=== PATIENT | female | born 2000 | race Hispanic/Latino ===

== ENCOUNTER 2020-06-06 15:39 | Observation (INO) | payer OTHER, SELFPAY ==
--- NOTE | ~2020-06-06 | CT_ITS ---
EXAMINATION: CT abdomen pelvis w con INDICATION: Abdominal pain TECHNIQUE: Computed tomographic images of the abdomen and pelvis were obtained after the administrati on of 100 cc of Omnipaque 350 intravenous contrast. The dose-length product (DLP) was 229.68 mGy-cm. Automated exposure control and iterative reconstruction technique were employed. COMPARISON: 07/05/2019 FINDINGS: The lung bases are clear. The heart size is normal. There are multiple small cysts of the l iver which measure up to 4 mm in the right hepatic lobe. The spleen, pancreas, gallbladder, and adren al glands are normal. The kidneys are unremarkable. No pathologically enlarged abdominal or pelvic ly mph nodes are identified. There is no free intraperitoneal gas or evidence of bowel obstruction. A la rge volume of colonic stool is present. The mildly dilated appendix measures 7 mm. There is subtle e dematous stranding of the periappendiceal fat. IMPRESSION: 1. Possible very early appendicitis. Recommend clinical correlation for right lower quadrant tenderne ss. 2. Constipation. Reviewed, dictated and finalized at location A. [employer] IMPRESSION: 1. Possible very early appendicitis. Recommend clinical correlation for right l ower quadrant tenderness. 2. Constipation.
[2020-06-06 16:10] VITALS: BP 121/69; PULSE 80; RESP 17; TEMP 36.6; O2SAT 100
--- NOTE | 2020-06-06 16:30 | ED.GENADULT ---
HPI - General Adult General Chief complaint: Abdominal Pain Stated complaint: ABDOMINAL PAIN Time Seen by Provider: 06/06/20 16:15 Source: RN notes reviewed History of Present Illness HPI narrative: Patient presents emergency department from home for abdominal pain. Patient states symptoms began around noon today. Pain is located in the bilateral lower lower angely wall but worse on the right states is associated with nausea as well as several formed stools she denies any fevers or chills chest pain shortness of breath diarrhea or any other symptoms took no previous pain medication at home Related Data Home Medications Medication Instructions Recorded Confirmed Control Pills 07/05/19 Allergies Allergy/AdvReac Type Severity Reaction Status Date / Time human papillomavirus Allergy Headache Verified 06/06/20 16:13 vaccine, bival Review of Systems Review of Systems: Narrative: Gen.: Denies fevers or chills ENT: Denies congestion Respiratory: Denies shortness of breath or cough CV: Denies chest pain or palpitations GI: see HPI denies burning, urgency, frequency or hematuria Musculoskeletal: Denies back pain or muscle pain Neuro: Denies numbness, tingling, weakness or focal weakness Skin: Denies rash Except as documented, all other systems reviewed and negative PMFSH Past Medical History Medical History Healthy adult Surgical History Surgical History (Updated 07/05/19 @ 14:20 by Virginia Robin) No pertinent past surgical history Social History Social History Smoking status: Never smoker Gender identity (if verbalized by the patient): Female Exam Narrative: Exam Narrative: APPEARANCE: No acute distress, nontoxic, resting in bed HEENT: Normocephalic, atraumatic, OMM RESPIRATORY: No respiratory distress, clear to auscultation bilaterally with no rhonchi wheezing or rales CARDIOVASCULAR: RRR s murmur ABDOMINAL: Soft, nondistended, tender palpation in right upper quadrant and left upper quadrant with increased tenderness in right lower quadrant no rebound or guarding MUSCULOSKELETAl: Moves all extremities. No clubbing, cyanosis or edema. NEURO: Awake and alert. Following commands, speech normal, no focal deficits SKIN:: Warm, dry. Normal Color PSYCHIATRIC: Normal affect/mood Course Course Emergency Course: Discussed with Dr. george presentation work-up agrees with admission to service with plan for OR in the a.m. Discussed with patient and family results of workup and diagnosis. Discussed need for admission. Patient and family understand and agree to current treatment plan Vital Signs Vital signs: Vital Signs Temperature 97.9 F 06/06/20 16:10 Pulse Rate 80 06/06/20 16:10 Respiratory Rate 17 06/06/20 16:10 Blood Pressure 121/69 06/06/20 16:10 Pulse Oximetry 100 06/06/20 16:10 Temperature 97.9 F 06/06/20 16:10 Pulse Rate 80 06/06/20 16:10 Respiratory Rate 17 06/06/20 16:10 Blood Pressure 121/69 06/06/20 16:10 Pulse Oximetry 100 06/06/20 16:10 Medical Decision Making Vital Signs Vital Signs: Vital Signs Temperature 97.9 F 06/06/20 16:10 Pulse Rate 80 06/06/20 16:10 Respiratory Rate 17 06/06/20 16:10 Blood Pressure 121/69 06/06/20 16:10 Pulse Oximetry 100 06/06/20 16:10 Temperature 97.9 F 06/06/20 16:10 Pulse Rate 80 06/06/20 16:10 Respiratory Rate 17 06/06/20 16:10 Blood Pressure 121/69 06/06/20 16:10 Pulse Oximetry 100 06/06/20 16:10 Lab Data Result diagrams: 06/06/20 16:31 06/06/20 16:31 Labs: Lab Results 06/06/20 06/06/20 06/06/20 Range/Units 16:31 16:31 16:31 WBC 11.5 H (4.5-10.0) K/mm3 RBC 4.50 (4.2-5.4) M/mm3 Hgb 12.9 (12.0-15.0) g/dL Hct 38.8 (37.0-47.0) % MCV 86.2 (80-100) fl MCH 28.7 (26-34) pg MCHC 33.2 (32-
[2020-06-06] MEDS: SODIUM CHLORIDE 0.9% IV 1,000 ML 999 ML IV CONT (16:35)
[2020-06-06] MEDS: ONDANSETRON INJ 4 MG/2 ML VIAL IV PUSH ×2 (16:35→19:28)
[2020-06-06 16:42] LABS: Basophils Percent Auto 0.2 % (0.2-1.2); Eosinophils Absolute Auto 0.1 K/mm3 (0-0.3); Eosinophils Percent Auto 0.9 % (0-4.4); Hematocrit 38.8 % (37.0-47.0); Hemoglobin 12.9 g/dL (12.0-15.0); Immature Granulocyte Absolute 0.05 K/mm3 (0.00-0.031); Immature Granulocyte Percent A 0.4 % (0-0.5); Lymphocytes Percent Auto 16.5 % (18.3-44.2); Mean Corpuscular HGB Conc 33.2 g/dl (32-36); Mean Corpuscular Hemoglobin 28.7 pg (26-34); Mean Corpuscular Volume 86.2 fl (80-100); Mean Platelet Volume 8.8 fl (7.4-10.4); Monocytes Absolute Auto 0.6 K/mm3 (0.1-0.6); Neutrophils Absolute Auto 8.9 K/mm3 (1.3-6.7); Platelet Count Result 387 k/mm3 (150-375); Red Cell Distribution Width 12.8 % (11.5-14.5); White Blood Count 11.5 K/mm3 (4.5-10.0)
[2020-06-06 16:46] LABS: Add Urine Microscopic? YES; Appearance Urine Clear (Clear); Bacteria Urine Trace /hpf; Bilirubin Urine Negative (Negative); Blood Urine Negative (Negative); Color Urine Yellow (Yellow); Glucose Urine UA Negative (Negative); Ketones Urine Negative (Negative); Leukocyte Esterase Ur Negative LEU/UL (Negative); Mucus Urine Rare /lpf; Nitrate Urine Negative (Negative); Protein Urine Negative (Negative); RBC Urine 0-2 /hpf (0-2); Specific Grav Ur 1.015 (1.001-1.035); Squamous Epithelial Cell Urine Occasional /hpf (Few); Urobilinogen Urine Negative mg/dL (<2.0); WBC Urine 0-3 /hpf
[2020-06-06 16:57] LABS: Alanine Aminotransferase 13 U/L (4-35); Albumin Level 4.4 g/dL (3.5-5.1); Alkaline Phosphatase 85 U/L (38-126); Anion Gap 7 mmol/L (8-16); Aspartate Amino Transferase 28 U/L (14-36); Bilirubin,Total 0.5 mg/dL (0.2-1.3); Blood Urea Nitrogen 10 mg/dL (7-17); Calcium 9.8 mg/dL (8.4-10.2); Carbon Dioxide 28 mmol/L (22-30); Chloride 103 mmol/L (98-107); Estimated CRCL calculation 95 ml/min; Estimated Glomerular Filt Rate > 60; Glucose 92 mg/dL (65-105); Lipase 52 U/L (23-300); Potassium 3.9 mmol/L (3.4-5.0); Sodium 138 mmol/L (137-145)
[2020-06-06 19:14] VITALS: BP 94/60; PULSE 68; RESP 16; TEMP 36.7; O2SAT 100
[2020-06-06] MEDS: SODIUM CHLORIDE 0.9% IV 1,000 ML 125 ML IV CONT (21:14)
[2020-06-06 22:00] VITALS: BP 102/61; PULSE 65; RESP 16; TEMP 36.3; O2SAT 100
[2020-06-06 22:38] VITALS: BMI 23.7
[2020-06-07] VITALS (9 sets, daily range): BP systolic 92–116; BP diastolic 51–64; PULSE 63–85; RESP 14–20; TEMP 36–36.6; O2SAT 95–100
[2020-06-07] MEDS: ONDANSETRON INJ 4 MG/2 ML VIAL IV PUSH
--- NOTE | 2020-06-07 03:06 | ADMGEN ---
This patient, Mayela Rivera, was admitted to Medical Room [facility]- at 1930. Patient/family oriented to hospital policies and general routines including ID bracelet, bed and alarms, visiting hours, pain management, procedures, bathroom and other care routines, personal items, smoking policy, room service/diet, and visiting hours. Information on how to activate the Rapid Response Team has been discussed. Patient/Family are encouraged to report perceived risks to care and to ask questions if they do not understand what they are told or what they should do.
[2020-06-07] MEDS: SODIUM CHLORIDE 0.9% IV 1,000 ML 125 ML IV CONT (05:43)
[2020-06-07 06:24] LABS: Basophils Percent Auto 0.3 % (0.2-1.2); Eosinophils Absolute Auto 0.2 K/mm3 (0-0.3); Eosinophils Percent Auto 3.2 % (0-4.4); Hemoglobin 10.1 g/dL (12.0-15.0); Immature Granulocyte Absolute 0.02 K/mm3 (0.00-0.031); Immature Granulocyte Percent A 0.3 % (0-0.5); Lymphocytes Absolute Auto 2.72 K/mm3 (0.9-3.2); Mean Corpuscular HGB Conc 33.7 g/dl (32-36); Mean Corpuscular Hemoglobin 28.5 pg (26-34); Mean Corpuscular Volume 84.5 fl (80-100); Monocytes Absolute Auto 0.5 K/mm3 (0.1-0.6); Monocytes Percent Auto 7.2 % (2.6-8.5); Neutrophils Absolute Auto 3.2 K/mm3 (1.3-6.7); Platelet Count Result 302 k/mm3 (150-375); Red Blood Count 3.55 M/mm3 (4.2-5.4); Red Cell Distribution Width 12.7 % (11.5-14.5); White Blood Count 6.6 K/mm3 (4.5-10.0)
[2020-06-07 06:33] LABS: Anion Gap 7 mmol/L (8-16); Blood Urea Nitrogen 9 mg/dL (7-17); Calcium 7.9 mg/dL (8.4-10.2); Carbon Dioxide 22 mmol/L (22-30); Chloride 107 mmol/L (98-107); Estimated CRCL calculation 95 ml/min; Estimated Glomerular Filt Rate > 60; Glucose 79 mg/dL (65-105); Potassium 3.6 mmol/L (3.4-5.0); Sodium 136 mmol/L (137-145)
--- NOTE | 2020-06-07 07:00 | WPDANESEPP ---
Anes - Eval Pre Procedure Procedure: Operation Date: 06/07/20 08:15 Proposed Procedures p Laparoscopic Appendectomy - Rosendo Soto DO Date/Time: 06/07/20 07:00 Pre Op Diagnosis: Acute appendicitis Patient Data Age: 20 Gender: F Height: 1.55 m Weight: 57 kg Last Vital Signs Temp 36.0 C L 06/07/20 06:00 Pulse 63 06/07/20 06:00 Resp 16 06/07/20 06:00 BP 92/63 L 06/07/20 06:00 Pulse Ox 100 06/07/20 06:00 Allergies Allergy/AdvReac Type Severity Reaction Status Date / Time human papillomavirus Allergy Headache Verified 06/06/20 16:13 vaccine, bival Home Medications Medication Instructions Recorded Confirmed Type Control Pills 1 caplet BYMOUTH USEASDIRECTD 07/05/19 06/06/20 History Laboratory Tests 06/06/20 06/06/20 06/06/20 16:31 16:31 16:31 WBC 11.5 K/mm3 H K/mm3 (4.5-10.0) RBC 4.50 M/mm3 M/mm3 (4.2-5.4) Hgb 12.9 g/dL g/dL (12.0-15.0) Hct 38.8 % % (37.0-47.0) MCV 86.2 fl fl (80-100) MCH 28.7 pg pg (26-34) MCHC 33.2 g/dl g/dl (32-36) RDW 12.8 % % (11.5-14.5) Plt Count 387 k/mm3 H k/mm3 (150-375) MPV 8.8 fl fl (7.4-10.4) Immature Gran % (Auto) 0.4 % % (0-0.5) Neut % (Auto) 77.0 % H % (45.5-73.1) Lymph % (Auto) 16.5 % L % (18.3-44.2) Traverse % (Auto) 5.0 % % (2.6-8.5) Eos % (Auto) 0.9 % % (0-4.4) Baso % (Auto) 0.2 % % (0.2-1.2) Lymph # (Auto) 1.90 K/mm3 K/mm3 (0.9-3.2) Traverse # (Auto) 0.6 K/mm3 K/mm3 (0.1-0.6) Eos # (Auto) 0.1 K/mm3 K/mm3 (0-0.3) Baso # (Auto) 0.0 K/mm3 K/mm3 (0.0-0.1) Abs Immat Gran (auto) 0.05 K/mm3 H K/mm3 (0.00-0.031) Absolute Neuts (auto) 8.9 K/mm3 H K/mm3 (1.3-6.7) Absolute Nucleated RBC 0.0 K/mm3 K/mm3 (0.0-0.012) Nucleated RBC % 0.0 % % (0.0-0.2) Sodium 138 mmol/L mmol/L (137-145) Potassium 3.9 mmol/L mmol/L (3.4-5.0) Chloride 103 mmol/L mmol/L (98-107) Carbon Dioxide 28 mmol/L mmol/L (22-30) Anion Gap 7 mmol/L L mmol/L (8-16) BUN 10 mg/dL mg/dL (7-17) Creatinine 0.60 mg/dL L mg/dL (0.7-1.0) Estim Creat Clear Calc 95 ml/min ml/min Estimated GFR > 60 (59 - ) Glucose 92 mg/dL mg/dL (65-105) Calcium 9.8 mg/dL mg/dL (8.4-10.2) Total Bilirubin 0.5 mg/dL mg/dL (0.2-1.3) AST 28 U/L U/L (14-36) ALT 13 U/L U/L (4-35) Alkaline Phosphatase 85 U/L U/L (38-126) Total Protein 8.0 g/dL g/dL (6.3-8.2) Albumin 4.4 g/dL g/dL (3.5-5.1) Lipase 52 U/L U/L (23-300) Urine Color Yellow (Yellow) Urine Appearance Clear (Clear) Urine pH 7.0 (5.0-9.0) Ur Specific [place] 1.015 (1.001-1.035) Urine Protein Negative mg/dL mg/dL (Negative) Urine Glucose (UA) Negative mg/dL mg/dL (Negative) Urine Ketones Negative mg/dL mg/dL (Negative) Ur Blood (Man) Negative (Negative) Urine Nitrate Negative (Negative) Urine Bilirubin Negative (Negative) Urine Urobilinogen Negative mg/dL mg/dL (<2.0) Leukocyte Esterase Rfl Negative AINSLEY/UL AINSLEY/UL (Negative) Urine RBC 0-2 /hpf /hpf (0-2) Urine WBC 0-3 /hpf /hpf Ur Squamous Epith Cells Occasional /hpf /hpf (Few) Urine Bacteria Trace /hpf /hpf Urine Mucus Rare /lpf /lpf 06/07/20 06/07/20 05:38 05:38 WBC 6.6 K/mm3 K/mm3 (4.5-10.0) RBC 3.55 M/mm3 L M/mm3 (4.2-5.4) Hgb 10.1 g/dL L g/dL (12.0-15.0) Hct 30.0 % L % (37.0-47.0) MCV 84.5 fl fl (80-100) MCH 28.5 pg pg (26-34) MCHC 33.7 g/dl g/dl (3
--- NOTE | 2020-06-07 08:11 | PM.IMHP ---
H&P: HPI History of Present Illness Date/Time: 06/07/20 08:11 Chief complaint: Acute appendicitis Narrative: Mayela Rivera is a 20 year old female Who presented to the emergency department last night with complaints of right lower quadrant abdominal pain. Her pain started yesterday morning. It has localized to the right lower quadrant. Initially she thought these might be menstrual cramps, but she is not due to start her period for another week. She has never experienced pain like this in the past. She does have some nausea, but no change in bowel habits. Review of Systems Review of Systems: All systems reviewed & are unremarkable except as noted in HPI and below Eyes: Eyes: Denies change in vision ENT: Denies hearing loss, Denies neck pain and Denies sore throat Cardiovascular: Cardiovascular: Denies chest pain and Denies dyspnea Respiratory: Respiratory: Denies cough, Denies dyspnea and Denies wheezing Gastrointestinal: Gastrointestinal: Reports as per HPI Genitourinary: Genitourinary: Denies hematuria and Denies dysuria Musculoskeletal: Musculoskeletal: Denies arthralgias, Denies joint swelling and Denies neck pain Allergic/Immunologic: Allergic/Immunologic: Denies wheezing PMFSH Past Medical History Medical History Healthy adult Surgical History Surgical History No pertinent past surgical history Family History Family History Other Unknown family medical history Social History Social History Smoking status: Never smoker Alcohol intake: never Substance use: never Gender identity (if verbalized by the patient): Female Spiritual care concerns: Yes Meds Home Medications and Allergies Home Medications Medication Instructions Recorded Confirmed Type Control Pills 1 caplet BYMOUTH USEASDIRECTD 07/05/19 06/06/20 History Allergies Allergy/AdvReac Type Severity Reaction Status Date / Time human papillomavirus Allergy Headache Verified 06/06/20 16:13 vaccine, bival Vital Signs Vital Signs - 24 hr 06/06/20 16:10 06/06/20 19:14 06/06/20 22:00 Temperature 36.6 C 36.7 C 36.3 C L Pulse Rate 80 68 65 Respiratory Rate 17 16 16 Blood Pressure 121/69 94/60 L 102/61 Pulse Oximetry 100 100 100 06/07/20 06:00 Temperature 36.0 C L Pulse Rate 63 Respiratory Rate 16 Blood Pressure 92/63 L Pulse Oximetry 100 Exam Const: General: alert; No acute distress Orientation/consciousness: patient oriented x3 Limitations: no limitations HENMT: Head: normocephalic and atraumatic Ears: hearing grossly normal bilaterally General nose exam: Normal external nose present and Normal nares present Mouth: Yes Normal oral and palatal mucosa present and Yes moist mucous membranes Eyes: General: appearance normal, both eyes and all related structures Conjunctivae: conjunctivae normal Sclera: sclerae normal Pupils: Equal, round and reactive pupils present EOM: EOMs intact bilaterally Neck: Neck: normal visual inspection, full ROM, no lymphadenopathy, supple and no JVD Lymphatic: no lymphadenopathy noted Chest: Chest palpation & inspection: normal inspection of the chest Resp: Effort & Inspection: normal respiratory effort and able to speak in complete sentences Auscultation: clear to auscultation bilaterally Percussion: percussion normal Cardio: Jugular venous distension: no JVD Rate: regular rate Rhythm: regular rhythm Heart sounds: S1 normal heart sound present and S2 normal heart sound present Peripheral pulses: Peripheral pulses 2+ throughout GI: Inspection: normal to inspection GI Palp: Yes Soft to palpation, Yes Tenderness to palpation present (GI) ( Right lower quadrant), No Guarding due to palpation present (GI), No Hernia present and No Reboun
--- NOTE | 2020-06-07 08:14 | WPDHPUPDATE1 ---
History and Physical Update Update Date/Time: 06/07/20 08:14 History and Physical has been reviewed, including an updated exam of the patient. There are NO changes in the patient's condition. Risks, benefits, and alternatives have been discussed and questions answered. Patient agrees to proceed with procedure.
[2020-06-07] MEDS: BUPIVACAINE/EPINEPHRINE 0.25% 10 ML VIAL 30 ML INFILTRATE (09:52)
--- NOTE | 2020-06-07 10:14 | PM.PROC ---
Procedure Note - Detailed Date of procedure: 06/07/20 Pre-op diagnosis: Acute appendicitis Post-op diagnosis: same Procedure performed: Laparoscopic Appendectomy Description of procedure: Procedure as well as risks, benefits, and alternatives were explained to the patient. The patient agreed to proceed. Written consent was obtained and placed in chart prior to procedure. The patient was brought back to surgical suite. she was placed supine on operating table. Time-out was done to confirm the patient and procedure. The patient was then intubated by the Anesthesia Department. her abdomen was prepped and draped in sterile fashion using chlorhexidine prep. A 12 mm incision was made at the inferior portion of the umbilicus. Blunt dissection was carried out down to the linea alba. The linea alba was then incised using a 15 blade scalpel. Then bluntly entered into the peritoneal cavity. A 12 mm trocar was then inserted, and carbon dioxide insufflation was used to create a pneumoperitoneum. The camera was inserted and the abdomen was inspected. No immediate abnormalities were identified. The patient was then placed in slight Trendelenburg position and rotated to the left. A 5 mm incision was made in the suprapubic region in midline and a 5 mm trocar was inserted under direct visualization. A 5 mm incision was made in the left lower quadrant and a 5 mm trocar was inserted under direct visualization. The right lower quadrant was carefully inspected. The cecum was identified and then this was traced back to the appendix. The appendix was identified and grasped at the mesoappendix and lifted anteriorly. Careful blunt dissection was carried out at the base of the appendix through the mesoappendix using a [place] grasper. An Endo-BERNABE 45 mm blue load stapler was then advanced across the base of the appendix and clamped and fired. A white reload was then clamped across the mesoappendix and fired. This freed up our appendix completely. It was then placed in an EndoCatch bag and removed through the left lower quadrant port. The staple lines were then inspected. Hemostasis appeared adequate and the staple lines appeared secure. The area was then irrigated with sterile saline. The pelvis was then carefully inspected and irrigated with sterile saline as well and the remainder of the abdomen was carefully inspected. The patient was then flattened out in bed. One final inspection was made around the abdominal cavity and no other abnormalities were seen. The ports were then removed under direct visualization. The camera was removed and the pneumoperitoneum was released. The fascia of the umbilical incision was reapproximated using an 0 Vicryl [id number] suture. 0.5% bupivacaine with epinephrine was infiltrated locally around each of the incisions. The skin of the incisions was then approximated using 4-0 Monocryl subcuticular suture and Exofin glue was applied on top. The patient was then awakened from anesthesia, extubated, and transferred to Recovery. Anesthesia: GETA and local (0.5% bupivicaine with epi) Surgeon: Rosendo Soto DO Estimated blood loss (mL): 5 Pathology: yes (Appendix) Complications: No immediate complications Condition: stable Disposition: floor Findings: this is a 20-year-old woman who presented to the emergency department last night with complaints of right lower quadrant abdominal pain. She had focal tenderness to palpation in the right lower quadrant and CT of her abdomen and pelvis showed evidence of early acute appendicitis. She was admitted to the hospital and started on Zosyn IV. Discussions were made with the patient about treatment options and decision was made to proceed with laparoscopic appendectomy, possible open. Laparoscopic appendectomy was performed. The appendix appeared to have early signs of inflammation with slight dilation and erythema, there is no evidence of perforation or abscess. The base of the zechariah
[2020-06-07] MEDS: LACTATED RINGERS 1,000 ML 30 ML IV CONT (10:16)
[2020-06-07] MEDS: fentaNYL CITRATE INJ (*CRX) 100 MCG/2 ML VIAL 25 MCG IV PUSH ×4 (10:34→10:56)
[2020-06-07] MEDS: HYDROcodone/acetaminophen (*CRX) 7.5-325 MG TABLET 1 TAB PO (11:38)
--- NOTE | 2020-06-12 12:53 | PM.DS ---
DS: Admitting Diagnosis Admitting Diagnosis Admitting Diagnosis: acute appendicitis DS: Discharge Diagnosis Discharge Diagnosis (1) Acute appendicitis: Qualifiers: Acute appendicitis type: with localized peritonitis Appendicitis abscess presence: unspecified whether abscess present Appendicitis gangrene presence: unspecified whether gangrene present Appendicitis perforation presence: unspecified whether perforation present Qualified Code(s): K35.30 - Acute appendicitis with localized peritonitis, without perforation or gangrene Code(s): K35.80 - Unspecified acute appendicitis Status: Acute DS: Summary Hospital Course Reason for hospitalization: acute appendicitis Hospital Course: this is a 20-year-old woman who presented to the emergency department on 06/06/2020 with right lower quadrant abdominal pain. Workup and imaging in the emergency department showed evidence of acute appendicitis. She was admitted to the hospital and placed on broad-spectrum IV antibiotics. On 06/07/2020 she underwent laparoscopic appendectomy. Procedure was uncomplicated and she was returned to the surgical floor postoperatively. Her diet and activity were advanced as tolerated. She was doing well several hours after the surgery and was discharged on 06/07/2020. Status at Discharge Functional status at discharge: independent ambulation Overall status at discharge: patient is progressing back to baseline Time Spent with Patient Time attestation: Total time spent providing and/or coordinating discharge services: Time spent: Less than 30 minutes Exam GI: Inspection: incision ( Intact with glue) GI Palp: Yes Soft to palpation DS: Data Data Completed and Pending Completed studies during hospitalization: Pending at discharge 06/07/20 10:04 Surgical [PTH] Routine Imaging Radiologist's impression: ITS Impressions Abdomen/Pelvis CT 06/06/20 17:16 IMPRESSION: 1. Possible very early appendicitis. Recommend clinical correlation for right lower quadrant tenderness. 2. Constipation. Discharge Plan Discharge Attending physician on discharge: Rosendo Salas Consulting providers: Tad Franks Discharging Clinician: Rosendo Salas Patient Disposition: Home, Self-Care Activity: other - see discharge instructions Diet: other - see discharge instructions Wound Care Instructions: other - see discharge instructions Discharge Instructions: DISCHARGE INSTRUCTION SHEET FOR HERNIA, GALLBLADDER AND APPENDIX SURGERIES DR. SALAS PATIENT TO TAKE HOME 1. May shower in 24 hours, no soaking in bath x 2weeks. 2. Call office for: Wound increasingly painful or bleeding Vomiting Fever of greater than 101 degrees 3. If no bowel movement for three days, take 1 oz. (30 ml) Milk of Magnesia or MiraLax 17g 1 to 2 times daily. 4. No heavy lifting > 10-15 pounds x weeks for hernia repairs and 2 weeks for laparoscopic cholecystectomy or appendectomy. 5. No driving for 3 days or while taking narcotic pain medications. 6. Ice to surgical site for 48 hours (30 min on, then 30 min off). 7. Up walking 10-30 minutes three times per day. 8. Resume previous home medications. 9. Follow-up 10-14 days in office for wound check or as previously scheduled. ([id number]) 10. Oral pain medications prescription to be sent to pharmacy. Take Tylenol 500mg every 6 hours and Ibuprofen 600mg every 6 hours for the first 2 days, then as needed. 11. NUTRITION: Start out by drinking fluids and increase your diet as tolerated. If you experience nausea, try dry toast, crackers, and 7-UP. If nausea or vomiting persists, contact your surgeon?s office. 12. Gallbladders-Low Fat Diet for 2 weeks (send care note of low fat diet) 13. Inguinal Hernias-wear scrotal support for 48 hours 14. Abdominal Hernias-if sent home with abdominal binde
== END 2020-06-07 17:59 | disposition home or self-care (01) ==
LOC: ANHED 18:26 → ANH2MED 18:44
PROVIDERS: Admitting Provider Surgery; Emergency Provider Emergency Medicine; PCP Nurse Practitioner Family; Visit Provider Surgery
PROC: 0DTJ4ZZ Resection of Appendix, Percutaneous Endoscopic Approach (ICD-10-PCS; CPT 44970; principal; 2020-06-07 08:15)
DX: K35.30 Acute appendicitis with localized peritonitis, without perforation or gangrene (principal)
CPT/HCPCS: 44970; 36415; 74177; 80048; 80053; 81001; 81025; 83690; 85025; 88304; 96361; 96365; 96366; 96367; 96375; 96376; 99285; A9270; G0378; J0131; J0330; J1100; J2405; J2543; J2704; J3010; J7030; J7120; Q9967

== ENCOUNTER 2020-12-11 15:29 | Emergency (ER) | payer OTHER, SELFPAY ==
--- NOTE | ~2020-12-11 | XR_ITS ---
EXAMINATION: XR chest 2V DATE: 12/11/2020 15:50 INDICATION: Shortness of breath. Painful rash on legs. TECHNIQUE: PA and lateral views of the chest were obtained. COMPARISON: Chest radiograph dated 07/05/2019 FINDINGS: The lungs remain clear with no focal airspace opacities, pulmonary edema, pleural effusion or pneumot horax. The cardiomediastinal silhouette is normal. Mild 3 component curvature of the thoracic and lum bar spine with mild levocurvature at the upper thoracic spine, mild dextrocurvature in the lower thor acic spine and mild levorotocurvature in the lumbar spine. IMPRESSION: 1. No acute cardiopulmonary disease. Reviewed, dictated and finalized at location A.
--- NOTE | 2020-12-11 15:30 | ECG_ITS ---
Measurements Intervals Manley Rate: 105 P: 61 MD: 130 QRS: 47 QRSD: 78 T: 13 QT: 315 QTc: 416 Interpretive Statements SINUS TACHYCARDIA BORDERLINE ST-T WAVE ABNORMALITY- INFERIOR LEADS BASELINE WANDER- V3-V5 ABNORMAL ECG Electronically Signed On 12-11-2020 16:02:59 CDT by Tevin Whittington D.O.
[2020-12-11 15:32] VITALS: BP 146/79; PULSE 108; RESP 27; TEMP 36.6; O2SAT 100
[2020-12-11 15:36] VITALS: PULSE 88
[2020-12-11 15:57] LABS: Basophils Percent Auto 0.3 % (0.2-1.2); Eosinophils Absolute Auto 0.1 K/mm3 (0-0.3); Eosinophils Percent Auto 1.6 % (0-4.4); Hematocrit 34.9 % (37.0-47.0); Hemoglobin 11.5 g/dL (12.0-15.0); Immature Granulocyte Absolute 0.01 K/mm3 (0.00-0.031); Immature Granulocyte Percent A 0.1 % (0-0.5); Lymphocytes Absolute Auto 2.39 K/mm3 (0.9-3.2); Lymphocytes Percent Auto 32.1 % (18.3-44.2); Mean Corpuscular Volume 84.9 fl (80-100); Mean Platelet Volume 8.7 fl (7.4-10.4); Monocytes Absolute Auto 0.6 K/mm3 (0.1-0.6); Monocytes Percent Auto 7.8 % (2.6-8.5); Neutrophils Absolute Auto 4.3 K/mm3 (1.3-6.7); Neutrophils Percent Auto 58.1 % (45.5-73.1); Platelet Count Result 316 k/mm3 (150-375); Red Blood Count 4.11 M/mm3 (4.2-5.4); Red Cell Distribution Width 13.3 % (11.5-14.5); White Blood Count 7.4 K/mm3 (4.5-10.0)
[2020-12-11 16:06] LABS: INR 0.9; Prothrombin Time 12.4 Seconds (11.1-14.7)
[2020-12-11 16:07] LABS: Partial Thromboplastin Time 31.3 SECONDS (22.3-36.8)
[2020-12-11 16:08] LABS: Anion Gap 10 mmol/L (8-16); Blood Urea Nitrogen 7 mg/dL (7-17); Calcium 9.6 mg/dL (8.4-10.2); Carbon Dioxide 24 mmol/L (22-30); Chloride 106 mmol/L (98-107); Estimated CRCL calculation 112 ml/min; Estimated Glomerular Filt Rate > 60; Glucose 96 mg/dL (65-105); Potassium 3.5 mmol/L (3.4-5.0); Sodium 140 mmol/L (137-145)
[2020-12-11 16:20] LABS: Troponin I < 0.012 ng/mL (0.000-0.034)
--- NOTE | 2020-12-11 16:46 | ED.CHESTPAIN ---
HPI - Chest Pain General Chief Complaint: Chest Pain <April Nolasco MD - Last Filed: 12/11/20 17:42> Stated Complaint: chest hurts <April Nolasco MD - Last Filed: 12/11/20 17:42> Time Seen by Provider: 12/11/20 15:41 <April Nolasco MD - Last Filed: 12/11/20 17:42> Source: patient and RN notes reviewed <April Nolasco MD - Last Filed: 12/11/20 17:42> Mode of arrival: ambulatory <April Nolasco MD - Last Filed: 12/11/20 17:42> Limitations: no limitations <April Nolasco MD - Last Filed: 12/11/20 17:42> History of Present Illness HPI narrative: Patient is is 20 years old white female patient presents with dizziness, shortness of breath on exertion, tightness in the chest off and on for the last 24 hours. Patient also complaining of tender rash on the lower extremities for the last 4 days. Patient reports blisterlike rash at the back of the throat 2 weeks ago got better on the steroid and the mouthwash. History of appendectomy May 2020, subsequently patient developed constipation, 1 bowel movement once every 5 days. Patient been vaccinated for COVID-19, second dose was on November 08. Currently patient on control. Patient does not smoke or drink or uses drugs, works. She denies any fever, chills, nausea, vomiting, abdominal pain. Patient denies any genital blisters or ulcerations. Also denies any vaginal bleeding or discharge. Patient is sexually active. <April Nolasco MD - Last Filed: 12/11/20 17:42> Related Data Home Medications: Home Medications Medication Instructions Recorded Confirmed Control Pills 1 caplet BYMOUTH USEASDIRECTD 07/05/19 07/08/20 <April Nolasco MD - Last Filed: 12/11/20 17:42> Allergies/Adverse Reactions: Allergies Allergy/AdvReac Type Severity Reaction Status Date / Time human papillomavirus Allergy Headache Verified 12/11/20 15:37 vaccine, bival <April Nloasco MD - Last Filed: 12/11/20 17:42> Review of Systems Review of Systems: Narrative: CONSTITUTIONAL: Denies fever, chills, or sweats. EYES: Denies visual changes, redness, or discharge. ENT: Denies rhinorrhea, congestion, sore throat, or otalgia. CARDIOVASCULAR: Denies chest pain, palpitations, or edema. RESPIRATORY: Denies cough or dyspnea. GASTROINTESTINAL: Denies abdominal pain, nausea, vomiting, or diarrhea. GENITOURINARY: Denies dysuria or hematuria. SKIN: Denies rash or itching. MUSCULOSKELETAL: Denies back pain, joint pain, or myalgia. NEUROLOGIC: Denies headache, numbness, or weakness. PSYCHIATRIC: Denies anxiety or depression. <April Nolasco MD - Last Filed: 12/11/20 17:42> [facility] Past Medical History Medical History: Medical History Healthy adult <April Nolasco MD - Last Filed: 12/11/20 17:42> Surgical History Surgical History: Surgical History History of laparoscopic appendectomy 06/07/2020 <April Nolasco MD - Last Filed: 12/11/20 17:42> Family History Family History: Family History Other Unknown family medical history <April Nolasco MD - Last Filed: 12/11/20 17:42> Social History Social History: Social History Smoking status: Never smoker Alcohol intake: never Substance use: never Gender identity (if verbalized by the patient): Female Spiritual care concerns: Yes <April Nolasco MD - Last Filed: 12/11/20 17:42> Exam Narrative: Exam Narrative: General appearance: Well-developed, well-nourished Skin: Tender, erythematous subcutaneous nodules on the pretibial areas Head: Normocephalic, nontraumatic Eyes: Clear conjunctiva ENT: Oropharynx normal, ears normal, nose normal Neck: Supple, nontender Chest and respiratory: Airway patent, no respiratory distress, no accessory muscle use Heart: Regu
[2020-12-11 17:22] VITALS: BP 123/111; PULSE 91; RESP 17; O2SAT 100
[2020-12-11 17:55] LABS: D Dimer 0.27 ug/mL (<0.48); Erythrocyte Sedimentation Rate 26 mm/hr (0-20)
[2020-12-11 18:30] VITALS: BP 113/83; PULSE 75; RESP 15; O2SAT 100
== END 2020-12-11 18:31 | disposition home or self-care (01) ==
PROVIDERS: Emergency Provider Emergency Medicine; PCP Nurse Practitioner Family
DX: R07.89 Other chest pain (principal); L52 Erythema nodosum; R00.0 Tachycardia, unspecified; R94.31 Abnormal electrocardiogram [ECG] [EKG]
CPT/HCPCS: 36415; 71046; 80048; 84484; 85025; 85380; 85610; 85652; 85730; 93005; 99284

== ENCOUNTER 2021-01-13 15:54 | Emergency (ER) | payer OTHER, SELFPAY ==
[2021-01-13 15:58] VITALS: BP 113/66; PULSE 93; RESP 16; TEMP 36.8; O2SAT 100
--- NOTE | 2021-01-13 16:03 | ED.ABDPAIN ---
HPI - Abdominal Pain General Chief Complaint: Nausea/Vomiting/Diarrhea Stated Complaint: abdominal pain/vomiting/diarrhea Time Seen by Provider: 01/13/21 16:03 Source: patient, family and RN notes reviewed Mode of arrival: ambulatory Limitations: no limitations History of Present Illness HPI narrative: 20-year-old female presents to the [facility] with her dad with complaints of right upper quadrant, epigastric and left upper quadrant pain along with nausea vomiting and diarrhea since waking up this morning. Patient states she is not even able to keep water down. Lips are dry. Tenderness right upper quadrant and epigastric MD elicited complaint: abdominal pain Related Data Home Medications Medication Instructions Recorded Confirmed Control Pills 1 caplet BYMOUTH USEASDIRECTD 07/05/19 07/08/20 Allergies Allergy/AdvReac Type Severity Reaction Status Date / Time human papillomavirus Allergy Headache Verified 12/11/20 15:37 vaccine, bival Review of Systems Review of Systems: All systems reviewed & are unremarkable except as noted in HPI and below Constitutional: Constitutional: Reports no additional constitutional complaints, Denies chills and Denies fever(s) Eyes: Eyes: Reports no additional eye complaints ENT: Reports system reviewed and no additional complaints, except as documented Cardiovascular: Cardiovascular: Reports no additional cardiovascular complaints and Denies chest pain Respiratory: Respiratory: Reports no additional respiratory complaints, Denies cough and Denies dyspnea Gastrointestinal: Gastrointestinal: Reports as per HPI, Reports abdominal pain, Reports diarrhea, Reports nausea and Reports vomiting (8 times since morning to include water) Genitourinary: Genitourinary: Reports no additional female genitourinary complaints, Denies nocturia, Denies dysuria and Denies flank pain Musculoskeletal: Musculoskeletal: Reports no additional musculoskeletal complaints and Denies back pain Integumentary/Breasts: Skin/Breast: Reports system reviewed and no additional complaints, except as docu Neurologic: Reports system reviewed and no additional complaints, except as documented Psychiatric: Psychiatric: Reports no additional psychiatric complaints Allergic/Immunologic: Allergic/Immunologic: Reports no additional allergic/immunologic complaints PMFSH Past Medical History Medical History Healthy adult Surgical History Surgical History History of laparoscopic appendectomy 06/07/2020 Family History Family History Other Unknown family medical history Social History Social History Smoking status: Never smoker Alcohol intake: never Substance use: never Gender identity (if verbalized by the patient): Female Spiritual care concerns: Yes Comments At the time of my signature, I reviewed and agree with the nursing past medical, surgical, social, and family history. There is no relevant family history pertinent to the patient complaint. Exam Const: General: alert and ill appearing acutely (Mildly) Nutritional Appearance: well nourished Orientation/consciousness: patient oriented x3 HENMT: Head: normal to inspection Ears: external ears normal, TM's normal bilaterally and EAC's normal Eyes: Conjunctivae: conjunctivae normal Pupils: Equal, round and reactive pupils present Neck: Neck: normal visual inspection, no lymphadenopathy and no meningeal signs Chest: Chest palpation & inspection: normal inspection of the chest Resp: Effort & Inspection: normal respiratory effort and no use of accessory muscles Auscultation: clear to auscultation bilaterally, no crackles, no rales, no rhonchi and no wheezes Cardio: Rate: regular rate Rhythm: regular rhythm GI: GI Palp: Yes Soft to palp
== END 2021-01-13 16:21 | disposition short-term general hospital (02) ==
LOC: EXPGLEN 15:56
PROVIDERS: Emergency Provider Nurse Practitioner; PCP Nurse Practitioner Family
DX: R10.11 Right upper quadrant pain (principal); R10.13 Epigastric pain
CPT/HCPCS: 99212; G0463

== ENCOUNTER 2021-01-13 16:37 | Emergency (ER) | payer OTHER, SELFPAY ==
--- NOTE | ~2021-01-13 | CT_ITS ---
EXAMINATION: CT abdomen pelvis w con EXAM DATE: 01/13/2021 20:20 INDICATION: Epigastric pain, nausea vomiting diarrhea. Dizziness. TECHNIQUE: Spiral CT of the abdomen and pelvis was performed following intravenous injection of 100 m L Omnipaque 350. Axial, coronal and sagittal images of the abdomen and pelvis were reviewed. The do se-length product (DLP) for this examination was 229.81 mGy-cm. The exposure was tailored according to patient size (auto mA exposure control), and iterative reconstruction (ASIR) was used as additiona l dose reduction technique. Comparison is made to prior examination from 06/06/2020. FINDINGS: Multiple subcentimeter liver cysts. The liver, spleen, adrenal glands and pancreas are unr emarkable. Gallbladder is unremarkable. No biliary obstruction. Portal and splenic veins are paten t. Kidneys enhance symmetrically. There is no hydronephrosis. The uterus is unremarkable. The b ladder is unremarkable. There is no retroperitoneal or pelvic lymphadenopathy. There are surgical changes consistent with appendectomy. The stomach and small bowel are unremarkab le. There is colonic fluid, correlate for diarrhea. No free intraperitoneal gas. The heart is no rmal in size. There are no pericardial or pleural effusions. The lung bases are unremarkable. Ther e are no osteoblastic or osteolytic lesions identified. Mild lumbar levoscoliosis. IMPRESSION: 1. Colonic fluid, correlate for gastroenteritis/diarrhea. Reviewed, dictated and finalized at location A.
[2021-01-13 17:05] VITALS: BP 115/64; PULSE 92; RESP 14; TEMP 37; O2SAT 98
--- NOTE | 2021-01-13 17:05 | ECG_ITS ---
Measurements Intervals Downing Rate: 99 P: 66 MA: 126 QRS: 50 QRSD: 69 T: 10 QT: 314 QTc: 405 Interpretive Statements SINUS RHYTHM POSSIBLE LEFT ATRIAL ENLARGEMENT BORDERLINE ST-T WAVE ABNORMALITY- INFERIOR LEADS BORDERLINE ECG Electronically Signed On 01-13-2021 17:16:47 CDT by Tevin Whittington D.O.
[2021-01-13 17:30] LABS: Basophils Percent Auto 0.2 % (0.2-1.2); Eosinophils Percent Auto 0.1 % (0-4.4); Hematocrit 39.8 % (37.0-47.0); Hemoglobin 13.1 g/dL (12.0-15.0); Immature Granulocyte Absolute 0.03 K/mm3 (0.00-0.031); Immature Granulocyte Percent A 0.3 % (0-0.5); Lymphocytes Absolute Auto 0.66 K/mm3 (0.9-3.2); Lymphocytes Percent Auto 7.1 % (18.3-44.2); Mean Corpuscular HGB Conc 32.9 g/dl (32-36); Mean Corpuscular Hemoglobin 27.9 pg (26-34); Mean Corpuscular Volume 84.7 fl (80-100); Mean Platelet Volume 8.9 fl (7.4-10.4); Monocytes Absolute Auto 0.5 K/mm3 (0.1-0.6); Monocytes Percent Auto 4.8 % (2.6-8.5); Neutrophils Absolute Auto 8.2 K/mm3 (1.3-6.7); Neutrophils Percent Auto 87.5 % (45.5-73.1); Platelet Count Result 333 k/mm3 (150-375); White Blood Count 9.3 K/mm3 (4.5-10.0)
[2021-01-13 17:39] LABS: Alanine Aminotransferase 14 U/L (4-35); Albumin Level 4.4 g/dL (3.5-5.1); Alkaline Phosphatase 90 U/L (38-126); Anion Gap 13 mmol/L (8-16); Aspartate Amino Transferase 28 U/L (14-36); Bilirubin,Total 0.7 mg/dL (0.2-1.3); Blood Urea Nitrogen 11 mg/dL (7-17); Calcium 9.6 mg/dL (8.4-10.2); Carbon Dioxide 21 mmol/L (22-30); Chloride 105 mmol/L (98-107); Estimated CRCL calculation 95 ml/min; Estimated Glomerular Filt Rate > 60; Glucose 88 mg/dL (65-110); Lipase 73 U/L (23-300); Potassium 3.7 mmol/L (3.4-5.0); Sodium 139 mmol/L (137-145)
[2021-01-13 18:55] VITALS: BP 113/69; PULSE 95; RESP 14; O2SAT 99
--- NOTE | 2021-01-13 19:33 | ED.GENADULT ---
HPI - General Adult General Chief complaint: Abdominal Pain Stated complaint: abd pain/nausea/vomiting/diarrhea/dizzy Time Seen by Provider: 01/13/21 19:25 Source: patient History of Present Illness HPI narrative: Patient is a 20 y/o female complaining of generalized abdominal pain starting about 11:00 AM today. She describes her pain as sharp and rates it as 10/10 initially, but 7/10 currently. There is no pain radiation, no alleviating or exacerbating factor. She also had nausea, vomiting and watery stool. She feels dizzy. Related Data Home Medications Medication Instructions Recorded Confirmed Control Pills 1 caplet BYMOUTH USEASDIRECTD 07/05/19 07/08/20 Allergies Allergy/AdvReac Type Severity Reaction Status Date / Time human papillomavirus Allergy Headache Verified 01/13/21 22:04 vaccine, bival Review of Systems Constitutional: Constitutional: Denies chills, Denies fever(s), Denies headache(s) and Denies weakness Eyes: Eyes: Denies blurry vision ENT: Denies headache(s) and Denies neck pain Cardiovascular: Cardiovascular: Denies chest pain and Denies dyspnea Respiratory: Respiratory: Denies cough and Denies dyspnea Gastrointestinal: Gastrointestinal: Reports abdominal pain, Reports diarrhea, Reports nausea and Reports vomiting Genitourinary: Genitourinary: Denies hematuria and Denies dysuria Musculoskeletal: Musculoskeletal: Denies back pain and Denies neck pain Neurologic: Reports dizziness, Denies headache(s) and Denies weakness PMF Past Medical History Medical History Healthy adult Surgical History Surgical History History of laparoscopic appendectomy 06/07/2020 Family History Family History Other Unknown family medical history Social History Social History Smoking status: Never smoker Alcohol intake: never Substance use: never Gender identity (if verbalized by the patient): Female Spiritual care concerns: Yes Exam Const: General: no acute distress and well developed Orientation/consciousness: oriented to person, oriented to place, oriented to time and patient oriented x3 HENMT: Head: normocephalic Ears: external ears normal General nose exam: Normal external nose present Eyes: General: appearance normal, both eyes and all related structures Conjunctivae: conjunctivae normal Neck: Neck: normal visual inspection and full ROM Chest: Chest palpation & inspection: normal inspection of the chest and no tenderness Resp: Effort & Inspection: normal respiratory effort Auscultation: clear to auscultation bilaterally Cardio: Rate: regular rate Rhythm: regular rhythm GI: GI Palp: No abdominal tenderness and Yes Soft to palpation Skin: General skin exam: normal color and turgor normal Neuro: General: oriented to person, oriented to place, oriented to time and patient oriented x3 Cognition (Neuro): normal cognition Extrem: General: normal to inspection, full ROM and no pedal edema Psych: Appearance: grossly normal Mental Status: mental status grossly normal Affect: normal affect Course Reevaluation(s) Reevaluation #1: Rechecked. Discussed with patient about her test results. Patient states that she still has vomiting. Will order additional fluid bolus and antiemetics. Date: 01/13/21 Time: 20:55 Vital Signs Vital signs: Vital Signs Temperature 37.0 C 01/13/21 17:05 Pulse Rate 92 01/13/21 17:05 Respiratory Rate 14 01/13/21 17:05 Blood Pressure 115/64 01/13/21 17:05 Pulse Oximetry 98 01/13/21 17:05 Temperature 37.0 C 01/13/21 17:05 Pulse Rate 98 01/13/21 23:03 Respiratory Rate 19 01/13/21 23:03 Blood Pressure 129/94 H 01/13/21 23:03 Pulse Oximetry 100 01/13/21 23:03 Medical Decision Making Vital Signs
[2021-01-13 19:37] VITALS: BP 115/86; PULSE 101; RESP 15; O2SAT 100
[2021-01-13 20:14] LABS: Add Urine Microscopic? YES; Appearance Urine Clear (Clear); Bacteria Urine Trace /hpf; Bilirubin Urine Negative (Negative); Blood Urine Negative (Negative); Color Urine Yellow (Yellow); Glucose Urine UA Negative (Negative); Ketones Urine 2+ mg/dL (Negative); Leukocyte Esterase Ur Negative LEU/UL (Negative); Mucus Urine Few /lpf; Nitrate Urine Negative (Negative); Protein Urine 1+ mg/dL (Negative); RBC Urine 0-2 /hpf (0-2); Specific Grav Ur 1.027 (1.001-1.035); Squamous Epithelial Cell Urine Rare /hpf (Few); Urobilinogen Urine Negative mg/dL (<2.0); WBC Urine 0-3 /hpf
[2021-01-13] MEDS: DICYCLOMINE HCL INJ 20 MG/2 ML VIAL IM (20:29)
[2021-01-13] MEDS: SODIUM CHLORIDE 0.9% IV 1,000 ML 999 ML IV CONT ×2 (20:30→21:32)
[2021-01-13] MEDS: ONDANSETRON INJ 4 MG/2 ML VIAL IV PUSH (20:30)
[2021-01-13] MEDS: METOCLOPRAMIDE HCL INJ 10 MG/2 ML VIAL IV PUSH (21:32)
--- NOTE | 2021-01-13 23:01 | PC.NURSE ---
Pt tolerated PO challenge. Denies nausea at this time.
[2021-01-13 23:03] VITALS: BP 129/94; PULSE 98; RESP 19; O2SAT 100
== END 2021-01-13 23:03 | disposition home or self-care (01) ==
PROVIDERS: Emergency Provider Emergency Medicine; PCP Nurse Practitioner Family
DX: K52.9 Noninfective gastroenteritis and colitis, unspecified (principal); E86.0 Dehydration
CPT/HCPCS: 36415; 74177; 80053; 81001; 81025; 83690; 85025; 93005; 96361; 96372; 96374; 96375; 99284; J0500; J2405; J2765; J7030; Q9967